=== PATIENT | male | born 1965 | race Caucasian/White ===

== ENCOUNTER → 2020-06-15 | Outpatient (CLI) | payer BC, OTHER ==
[~2020-06-15] MED LIST: ASPIRIN81 MG PO; BACTRIM DS TAB1 EACH PO; CARDIZEM CD240 MG PO; CRESTOR 10 MG T10 MG PO; CRESTOR40 MG PO; ELIQUIS 5 MG TAB5 MG PO; FLECAINIDE ACE100 MG PO; LEXAPRO10 MG PO; METOPROLOL SUCC50 MG PO; MULTAQ 400 MG400 MG PO; NAPROSYN500 MG PO; NEURONTIN 300300 MG PO; SINGULAIR10 MG PO; VALSARTAN-HCTZ1 EAC3 PO; XYZAL5 MG PO
== END ==
LOC: WCC 13:25
DX: I87.2 Venous insufficiency (chronic) (peripheral) (principal); I48.0 Paroxysmal atrial fibrillation; G47.30 Sleep apnea, unspecified; E66.01 Morbid (severe) obesity due to excess calories

== ENCOUNTER → 2020-06-28 | Outpatient (CLI) | payer BC, OTHER | LOC: HEART CORB 11:30 | DX: I10 Essential (primary) hypertension (principal); I48.0 Paroxysmal atrial fibrillation | CPT/HCPCS: 93306 ==

== ENCOUNTER → 2020-06-29 | Outpatient (CLI) | payer BC, OTHER | LOC: HEART 5 13:30 | DX: I87.2 Venous insufficiency (chronic) (peripheral) (principal); E66.01 Morbid (severe) obesity due to excess calories; G47.30 Sleep apnea, unspecified; I48.0 Paroxysmal atrial fibrillation | CPT/HCPCS: 93925; 93970 ==

== ENCOUNTER 2020-07-23 22:01 | Inpatient (IN) | payer BC, OTHER ==
[~2020-07-23] VITALS: Ht 172.7 cm; Wt 173.5 kg
[~2020-07-23 22:01] MED LIST changes: -ASPIRIN81 MG PO; -CRESTOR 10 MG T10 MG PO; -CRESTOR40 MG PO; -ELIQUIS 5 MG TAB5 MG PO; -FLECAINIDE ACE100 MG PO; -METOPROLOL SUCC50 MG PO; -MULTAQ 400 MG400 MG PO
[2020-07-23 23:02] LABS: HEMOGLOBIN 13.2 gm/dl (14.0-17.5); RED BLOOD COUNT 4.61 M/UL (4.20-5.50); WHITE BLOOD COUNT 9.4 K/UL (4.5-11.0)
[2020-07-23 23:33] LABS: BUN/CREATININE RATIO 21 (0-10)
[2020-07-24] MEDS ORDERED: CRESTOR 10 MG T10 MG PO (05:07)
[2020-07-24] MEDS ORDERED: METOPROLOL SUCC50 MG PO (05:17)
[2020-07-24] MEDS ORDERED: FLECAINIDE ACE100 MG PO (05:18)
[2020-07-25 03:24] LABS: HEMOGLOBIN 13.5 gm/dl (14.0-17.5); RED BLOOD COUNT 4.64 M/UL (4.20-5.50); WHITE BLOOD COUNT 8.1 K/UL (4.5-11.0)
[2020-07-25 03:53] LABS: BUN/CREATININE RATIO 15 (0-10)
[2020-07-26] MEDS ORDERED: ASPIRIN81 MG PO (08:49)
[2020-07-26] MEDS ORDERED: CRESTOR 10 MG T10 MG PO (08:49)
[2020-07-26] MEDS ORDERED: MULTAQ 400 MG400 MG PO (08:49)
[2020-07-26] MEDS ORDERED: ELIQUIS 5 MG TAB5 MG PO (08:49)
[2020-07-26] MEDS ORDERED: CRESTOR40 MG PO (10:33)
== END 2020-07-26 12:20 | disposition home or self-care (01) | DRG 251 ==
LOC: ER1 22:01 → PROG CARE 23:58 → CDU 23:58 → PROG CARE 07-24 04:25
PROVIDERS: Family Medicine; Internal Medicine Cardiovascular Disease; ADMIT Internal Medicine
PROC: B2161ZZ Fluoroscopy of Right and Left Heart using Low Osmolar Contrast (ICD-10-PCS; principal; 2020-07-24)
PROC: 02C03ZZ Extirpation of Matter from Coronary Artery, One Artery, Percutaneous Approach (ICD-10-PCS; 2020-07-24)
DX: I21.4 Non-ST elevation (NSTEMI) myocardial infarction (principal); Z68.43 Body mass index [BMI] 50.0-59.9, adult; I20.9 Angina pectoris, unspecified; I48.91 Unspecified atrial fibrillation; I10 Essential (primary) hypertension; G47.33 Obstructive sleep apnea (adult) (pediatric); M54.30 Sciatica, unspecified side; M41.9 Scoliosis, unspecified; E66.9 Obesity, unspecified; I45.10 Unspecified right bundle-branch block; Z20.822 Contact with and (suspected) exposure to COVID-19; E78.5 Hyperlipidemia, unspecified; Z79.01 Long term (current) use of anticoagulants; Z82.49 Family history of ischemic heart disease and other diseases of the circulatory system; Z82.3 Family history of stroke
CPT/HCPCS: ECHO; 36415; 71045; 80048; 80053; 81001; 82550; 82553; 83874; 84484; 85025; 85347; 85379; 85610; 85730; 93005; 93306; 99152; 99153; 99285; C1757; C1769; C1887; C1894; J1644; J2250; J3010; J3246; J7040; Q9967; U0002